=== PATIENT | female | born 1970 | race African-American/Black ===

== ENCOUNTER 2017-06-13 11:10 | Emergency (ER) | payer OTHER | END 2017-06-13 11:41 | disposition left against medical advice (07) | LOC: ERS 11:10 | DX: Z53.21 Procedure and treatment not carried out due to patient leaving prior to being seen by health care provider (principal) ==

== ENCOUNTER 2017-06-14 09:44 | Emergency (ER) | payer OTHER, SELFPAY ==
[2017-06-14] MEDS ORDERED: Ketorolac Tromethamine 60 MG/2 ML VIAL ONE (11:05)
== END 2017-06-14 11:23 | disposition home or self-care (01) ==
LOC: ERS 09:44
DX: S70.12XA Contusion of left thigh, initial encounter (principal); Z79.899 Other long term (current) drug therapy; W19.XXXA Unspecified fall, initial encounter
CPT/HCPCS: 96372; J1885

== ENCOUNTER 2017-06-19 07:42 | Emergency (ER) | payer SELFPAY ==
[2017-06-19 08:29] LABS: Pregnancy Test - Urine (BHCG) Negative (Negative); Pregu Control Background? CLEAR/WHITE (CLR/WHITE); Pregu Control Bar Appear? YES (CONTROL BAR); Specific Gravity 1.018 (1.002-1.036)
[2017-06-19] MEDS ORDERED: Ketorolac Tromethamine 60 MG/2 ML VIAL ONE (08:55)
--- NOTE | 2017-06-19 08:58 | RAD ---
3 VIEWS LUMBOSACRAL SPINE: Date: 06/19/17 COMPARISON: 04/13/13. HISTORY: Injury with back pain. FINDINGS: Three views of the lumbosacral spine show normal height and alignment of the vertebral bodies and int ervertebral discs without fracture or subluxation. There are small worsening osteophytes surrounding the L3-4 intervertebral disc. Smaller osteophytes are seen in the upper lumbar spine near the thoraco lumbar junction. IMPRESSION: Mild degenerative changes of the lumbar spine as above without acute osseous abnormality. POS: [facility]
== END 2017-06-19 09:32 | disposition home or self-care (01) ==
LOC: ERS 07:42
DX: S39.012A Strain of muscle, fascia and tendon of lower back, initial encounter (principal); I10 Essential (primary) hypertension; Z79.899 Other long term (current) drug therapy; W01.0XXA Fall on same level from slipping, tripping and stumbling without subsequent striking against object, initial encounter
CPT/HCPCS: 72100; 81025; 96372; J1885

== ENCOUNTER 2017-06-30 12:07 | Emergency (ER) | payer SELFPAY | END 2017-06-30 13:30 | disposition home or self-care (01) | LOC: ERS 12:07 | DX: K02.9 Dental caries, unspecified (principal); K03.81 Cracked tooth; I10 Essential (primary) hypertension | CPT/HCPCS: 99281 ==

== ENCOUNTER 2017-07-24 10:31 | Emergency (ER) | payer SELFPAY | END 2017-07-24 10:48 | disposition left against medical advice (07) | LOC: ERS 10:31 | DX: Z53.21 Procedure and treatment not carried out due to patient leaving prior to being seen by health care provider (principal) ==

== ENCOUNTER 2017-07-27 05:27 | Emergency (ER) | payer SELFPAY ==
[2017-07-27] MEDS ORDERED: Ketorolac Tromethamine 30 MG/ML VIAL ONE (06:47)
--- NOTE | 2017-07-27 08:28 | RAD ---
RIGHT FEMUR 2 VIEWS: HISTORY: A 47-year-old female with right leg pain following a fall. FINDINGS: Mild degenerative changes right hip and right knee joints. No fracture or dislocation. IMPRESSION: No fracture or dislocation or other acute process. POS: [facility]
== END 2017-07-27 09:15 | disposition home or self-care (01) ==
LOC: ERS 05:27
DX: S76.911A Strain of unspecified muscles, fascia and tendons at thigh level, right thigh, initial encounter (principal); I10 Essential (primary) hypertension; Z79.899 Other long term (current) drug therapy; X50.0XXA Overexertion from strenuous movement or load, initial encounter; Y93.72 Activity, wrestling
CPT/HCPCS: 96374; 96375; J1885; J2270

== ENCOUNTER 2017-11-06 16:33 | Emergency (ER) | payer SELFPAY ==
[2017-11-06 16:58] LABS: #Lymphocytes 1.9 thou/uL (1.20-3.40); #Monocytes 0.4 thou/uL (0.11-0.59); #Neutrophils 3.6 thou/uL (1.40-6.50); %Basophils 0.2 % (0.0-1.0); %Eosinophils 0.8 % (0.0-10.0); %Lymphocytes 31.3 % (21.0-51.0); %Monocytes 6.3 % (0.0-10.0); %Neutrophils 61.4 % (42.0-75.0); Hemoglobin 12.1 g/dL (12.0-16.0); Mean Corpuscular HGB CONC 33.4 g/dL (32.0-36.0); Mean Corpuscular Hemoglobin 27.7 pg (27.0-31.0); Mean Corpuscular Volume 83.1 fl (81.0-99.0); Platelet Count 227 thou/uL (130-400); RBC Distribution Width 12.7 % (11.5-14.5); Red Blood Cell (RBC) Count 4.38 mill/uL (4.20-5.40); White Blood Cell (WBC) Count 5.9 thou/uL (4.8-10.8)
--- NOTE | 2017-11-06 17:08 | RAD ---
PORTABLE CHEST ONE VIEW: 11/06/17 at 4:01 p.m. HISTORY: Chest pain. FINDINGS: Comparison is made with exam of 10/20/16. The heart size is normal. The lungs are expanded without focal areas of consolidation, pneumothorax o r pleural effusions. IMPRESSION: No radiographic evidence of cardiopulmonary process. POS: [facility]
[2017-11-06 17:20] LABS: ALT (SGPT) 11 U/L (8-55); AST (SGOT) 14 U/L (5-34); Albumin 4.1 g/dL (3.5-5.0); Alkaline Phosphatase 54 U/L (40-150); Anion Gap 14 mmol/L (10-20); BUN (Urea Nitrogen) 11 mg/dL (7.0-18.7); Bilirubin, Total 0.7 mg/dL (0.2-1.2); CK (CPK) 97 U/L (29-168); Calc. Creatinine Clearance 0 mL/min (70-130); Calcium 9.2 mg/dL (7.8-10.44); Carbon Dioxide 23 mmol/L (22-29); Chloride 103 mmol/L (98-107); Estimated GFR-MDRD Greater than 90; Globulin 3.6 g/dL (2.4-3.5); Glucose 92 mg/dL (70-105); Lipase 51 U/L (8-78); Potassium 3.7 mmol/L (3.5-5.1); Protein, Total 7.7 g/dL (6.0-8.3); Sodium 136 mmol/L (136-145)
[2017-11-06 17:21] LABS: CKMB 1.3 ng/mL (0-6.6); Troponin I Less than 0.010 ng/mL (< 0.028)
[2017-11-06] MEDS ORDERED: Ketorolac Tromethamine 30 MG/ML VIAL ONE (17:21)
== END 2017-11-06 17:35 | disposition home or self-care (01) ==
LOC: ERS 16:33
DX: S29.011A Strain of muscle and tendon of front wall of thorax, initial encounter (principal); I10 Essential (primary) hypertension; X50.1XXA Overexertion from prolonged static or awkward postures, initial encounter
CPT/HCPCS: 71045; 80053; 82550; 82553; 83690; 83880; 84484; 85025; 93005; 96374; J1885

== ENCOUNTER 2018-05-13 12:53 | Emergency (ER) | payer SELFPAY | END 2018-05-13 14:03 | disposition left against medical advice (07) | LOC: ERS 12:53 | DX: Z53.21 Procedure and treatment not carried out due to patient leaving prior to being seen by health care provider (principal) | CPT/HCPCS: 87804 ==

== ENCOUNTER 2018-11-03 19:54 | Emergency (ER) | payer SELFPAY ==
[2018-11-03] MEDS ORDERED: Metoclopramide HCl 10 MG/2 ML VIAL ONE (20:44)
[2018-11-03] MEDS ORDERED: diphenhydrAMINE 50 MG/ML VIAL ONE (20:44)
[2018-11-03 20:57] LABS: #Eosinphils 0.1 thou/uL (0.0-0.7); #Lymphocytes 1.7 thou/uL (1.20-3.40); #Monocytes 0.3 thou/uL (0.11-0.59); #Neutrophils 2.8 thou/uL (1.40-6.50); %Basophils 0.6 % (0.0-1.0); %Eosinophils 1.6 % (0.0-10.0); %Lymphocytes 34.3 % (21.0-51.0); %Neutrophils 56.6 % (42.0-75.0); Hemoglobin 12.3 g/dL (12.0-16.0); Mean Corpuscular HGB CONC 32.5 g/dL (32.0-36.0); Mean Corpuscular Hemoglobin 27.1 pg (27.0-31.0); Mean Corpuscular Volume 83.4 fL (78.0-98.0); Mean Platelet Volume 8.1 fL (7.4-10.4); Platelet Count 220 thou/uL (130-400); RBC Distribution Width 13.5 % (11.5-14.5); Red Blood Cell (RBC) Count 4.55 mill/uL (4.20-5.40); White Blood Cell (WBC) Count 4.9 thou/uL (4.8-10.8)
--- NOTE | 2018-11-03 21:02 | CT ---
CT HEAD WITHOUT CONTRAST: 11/03/18 Multiple axial tomograms obtained through the head without IV enhancement. INDICATIONS: Headache. Ventricles have normal size and position. No evidence of intracranial mass or hemorrhage. No evidence of infarct. Sinuses are clear. IMPRESSION: No acute findings. POS: [facility]
[2018-11-03] MEDS ORDERED: Ketorolac Tromethamine 30 MG/ML VIAL ONE (21:09)
[2018-11-03 21:18] LABS: ALT (SGPT) 14 U/L (8-55); AST (SGOT) 13 U/L (5-34); Albumin 4.1 g/dL (3.5-5.0); Alkaline Phosphatase 50 U/L (40-150); Anion Gap 11 mmol/L (10-20); BUN (Urea Nitrogen) 13 mg/dL (7.0-18.7); Bilirubin, Total 0.7 mg/dL (0.2-1.2); Calc. Creatinine Clearance 0 mL/min (70-130); Calcium 9.5 mg/dL (7.8-10.44); Carbon Dioxide 27 mmol/L (22-29); Chloride 102 mmol/L (98-107); Estimated GFR-MDRD Greater than 90; Globulin 3.3 g/dL (2.4-3.5); Glucose 117 mg/dL (70-105); Potassium 3.5 mmol/L (3.5-5.1); Protein, Total 7.4 g/dL (6.0-8.3); Sodium 136 mmol/L (136-145)
== END 2018-11-03 23:29 | disposition home or self-care (01) ==
LOC: ERS 19:54
DX: R51 Headache (principal); R07.89 Other chest pain; I10 Essential (primary) hypertension; Z79.899 Other long term (current) drug therapy; X50.0XXA Overexertion from strenuous movement or load, initial encounter
CPT/HCPCS: 70450; 80053; 84484; 85025; 85652; 93005; 96361; 96365; 96375; J1200; J1885; J2765

== ENCOUNTER 2019-02-10 13:05 | Emergency (ER) | payer SELFPAY | END 2019-02-10 14:08 | disposition left against medical advice (07) | LOC: ERS 13:05 | DX: Z53.21 Procedure and treatment not carried out due to patient leaving prior to being seen by health care provider (principal) ==

== ENCOUNTER 2019-02-16 08:46 | Emergency (ER) | payer SELFPAY | END 2019-02-16 09:40 | disposition home or self-care (01) | LOC: ERS 08:46 | DX: J01.90 Acute sinusitis, unspecified (principal) | CPT/HCPCS: 99281 ==

== ENCOUNTER 2019-08-07 12:28 | Emergency (ER) | payer SELFPAY | END 2019-08-07 13:46 | disposition home or self-care (01) | LOC: ERS 12:28 | DX: M54.12 Radiculopathy, cervical region (principal); I10 Essential (primary) hypertension; Z79.899 Other long term (current) drug therapy | CPT/HCPCS: 99283 ==

== ENCOUNTER 2020-02-21 14:01 | Outpatient (CLI) | payer OTHER ==
--- NOTE | 2020-02-21 15:30 | ULT ---
PELVIC ULTRASOUND: Transabdominal and endovaginal ultrasound of pelvis performed. INDICATION: Pelvic pain. History of fibroids. FINDINGS: Uterus is enlarged and heterogeneous. At least 2 large fibroids are seen involving the myometrium, b oth of which measure in the 4 cm range. Uterine dimensions are recorded at 9.0 x 6.0 x 6.5 cm. Endometrial stripe appears normal measured at 5 mm. Neither ovary identified. IMPRESSION: 1. Uterus is enlarged and heterogeneous with areas of heterogeneity consistent with at least 2 large uterine fibroids. 2. Neither ovary identified. MRI pelvis could be performed to further characterize the uterine fibroids and evaluate ovaries if cl inically indicated. POS: [facility]
== END 2020-02-21 14:02 | disposition home or self-care (01) ==
LOC: BICULT 14:01
PROVIDERS: ATTEND Family Medicine
DX: D25.9 Leiomyoma of uterus, unspecified (principal); N85.2 Hypertrophy of uterus
CPT/HCPCS: 76856

== ENCOUNTER 2020-05-24 14:33 | Outpatient (CLI) | payer OTHER ==
--- NOTE | 2020-05-24 15:00 | MMO ---
Bilateral MAMMO Bilat Screen [facility]. CLINICAL HISTORY: Patient is 49 years old and is seen for screening. The patient has no family history of breast cancer. The patient has no personal history of cancer. VIEWS: The views performed were: bilateral craniocaudal; bilateral mediolateral oblique; and bilateral exaggerated craniocaudal. FILMS COMPARED: The present examination has been compared to prior imaging studies performed at [facility] on 05/09/2011, 07/25/2014, 10/05/2015 and 07/15/2017. This study has been interpreted with the assistance of computer-aided detection. MAMMOGRAM FINDINGS: The breasts are heterogeneously dense, which could obscure a lesion on mammography. There are no suspicious masses, suspicious calcifications, or new areas of architectural distortion. IMPRESSION: THERE IS NO MAMMOGRAPHIC EVIDENCE OF MALIGNANCY. A ROUTINE FOLLOW-UP MAMMOGRAM IN 1 YEAR IS RECOMMENDED. ACR BI-RADS Category 1 - Negative MAMMOGRAPHY NOTE: 1. A negative mammogram report should not delay a biopsy if a dominant of clinically suspicious mass is present. 2. Approximately 10% to 15% of breast cancers are not detected by mammography. 3. Adenosis and dense breasts may obscure an underlying neoplasm. Reported by: VALENTINE BARCLAY MD Electonically Signed: [id number]
== END 2020-05-24 14:34 | disposition home or self-care (01) ==
LOC: BICMAMMO 14:33
PROVIDERS: ATTEND Family Medicine
DX: Z12.31 Encounter for screening mammogram for malignant neoplasm of breast (principal)
CPT/HCPCS: 77067

== ENCOUNTER 2021-11-29 13:40 | Outpatient (CLI) | payer OTHER | END 2021-11-29 13:41 | disposition home or self-care (01) | LOC: BICMAMMO 13:40 | PROVIDERS: ATTEND Family Medicine | DX: Z12.31 Encounter for screening mammogram for malignant neoplasm of breast (principal) | CPT/HCPCS: 77067 ==

== ENCOUNTER 2022-12-17 15:04 | Outpatient (CLI) | payer OTHER | END 2022-12-17 15:05 | disposition home or self-care (01) | LOC: BICMAMMO 15:04 | PROVIDERS: ATTEND Family Medicine | DX: Z12.31 Encounter for screening mammogram for malignant neoplasm of breast (principal) | CPT/HCPCS: 77067 ==